=== PATIENT | female | born 1985 | race Caucasian/White ===

== ENCOUNTER 2017-07-23 10:30 | Emergency (ER) | payer MEDICAID ==
[~2017-07-23] VITALS: Ht 167.6 cm; Wt 113.4 kg
[2017-07-23 10:36] VITALS: Ht 167.6 cm; Wt 113.4 kg
[2017-07-23 11:58] VITALS: BP 143/86
== END 2017-07-23 11:58 | disposition home or self-care (01) ==
LOC: ED 10:30
DX: S01.81XA Laceration without foreign body of other part of head, initial encounter (principal); W01.0XXA Fall on same level from slipping, tripping and stumbling without subsequent striking against object, initial encounter; Y93.E1 Activity, personal bathing and showering; Y99.8 Other external cause status; Y92.89 Other specified places as the place of occurrence of the external cause
CPT/HCPCS: 90715

== ENCOUNTER 2017-07-26 15:29 | Emergency (ER) | payer MEDICAID ==
[~2017-07-26] VITALS: Ht 167.6 cm; Wt 97.5 kg
[2017-07-26 15:33] VITALS: BP 130/77; Ht 167.6 cm; Wt 97.5 kg
== END 2017-07-26 16:28 | disposition home or self-care (01) ==
LOC: ED 15:29
DX: S01.81XD Laceration without foreign body of other part of head, subsequent encounter (principal); W18.2XXD Fall in (into) shower or empty bathtub, subsequent encounter